=== PATIENT | female | born 1960 | race African-American/Black ===

== ENCOUNTER 2017-10-16 13:57 | Emergency (ER) | payer BC ==
--- NOTE | 2017-10-16 14:19 | PDOC ---
History of Present Illness - General Chief Complaint: Blood Pressure Problem Stated Complaint: HIGH BLOOD PRESSURE Time Seen by Provider: 10/16/17 14:19 - History of Present Illness Initial Comments: 10/16/17 14:19 Ms. Muñoz is a 57 yo female w/ pmh of HTN, reflux, and migraines, who presents for evaluation of high BP noted at [facility] earlier today. Ms. Muñoz reports she is proscribed labetalol and a "water pill" daily and that she hasn' t been taking her water pill for several days. BP upstairs was approximately 190 's systolic; BP upon arrival in ED was 160's systolic. Ms. Muñoz also reports recent blurry vision above her baseline and has had several days of leg swelling. The patient denies chest pain, shortness of breath, headache and dizziness. Denies fever, chills, nausea, vomit, diarrhea and constipation. Denies dysuria, frequency, urgency and hematuria. Allergies: Naproxen Past History - Past Medical History Allergies/Adverse Reactions: Allergies Allergy/AdvReac Type Severity Reaction Status Date / Time naproxen [From Naprosyn] Allergy Mild Hives Verified 10/11/15 22:05 naproxen sodium [From Aleve] Allergy Rash Verified 10/11/15 22:05 Home Medications: Ambulatory Orders Furosemide [Lasix] 0 mg PO ASDIR 10/16/17 Labetalol HCl [Normodyne -] 100 mg PO DAILY 10/16/17 Labetalol HCl [Normodyne -] 200 mg PO BID 10/16/17 Meloxicam 0 mg PO ASDIR 10/16/17 Anemia: No Asthma: No Cancer: No Cardiac Disorders: No CVA: No COPD: No CHF: No Dementia: No Diabetes: No GI Disorders: Yes Disorders: Yes (fibroids) HTN: Yes Hypercholesterolemia: No Liver Disease: No Seizures: No Thyroid Disease: No - Surgical History Abdominal Surgery: Yes (UMBILICAL HERNIA) - Suicide/Smoking/Psychosocial Hx Smoking Status: No Smoking History: Never smoked Have you smoked in the past 12 months: No Number of Cigarettes Smoked Daily: 0 Hx Alcohol Use: Yes (WINE) Drug/Substance Use Hx: No Substance Use Type: None Hx Substance Use Treatment: No Review of Systems - Review of Systems Comments:: 10/16/17 14:20 GENERAL/CONSTITUTIONAL: No fever or chills. No weakness. HEAD, EYES, EARS, NOSE AND THROAT: +Increased blurry vision when not taking BP meds. No ear pain or discharge. No sore throat. CARDIOVASCULAR: No chest pain or shortness of breath RESPIRATORY: No cough, wheezing, or hemoptysis. GASTROINTESTINAL: No nausea, vomiting, diarrhea or constipation. GENITOURINARY: No dysuria, frequency, or change in urination. MUSCULOSKELETAL: +Bilateral leg swelling. No neck or back pain. SKIN: No rash NEUROLOGIC: No headache, vertigo, loss of consciousness, or change in strength/ sensation. ENDOCRINE: No increased thirst. No abnormal weight change HEMATOLOGIC/LYMPHATIC: No anemia, easy bleeding, or history of blood clots. ALLERGIC/IMMUNOLOGIC: No hives or skin allergy. *Physical Exam - Physical Exam Comments: 10/16/17 14:20 GENERAL: Awake, alert, and fully oriented, in no acute distress HEAD: No signs of trauma, normocephalic, atraumatic EYES: PERRLA, EOMI, sclera anicteric, conjunctiva clear ENT: Auricles normal inspection, hearing grossly normal, nares patent, oropharynx clear without exudates. Moist mucosa NECK: Normal ROM, supple, no lymphadenopathy, JVD, or masses LUNGS: No distress, speaks full sentences, clear to auscultation bilaterally HEART: Regular rate and rhythm, normal S1 and S2, no murmurs, rubs or gallops, peripheral pulses normal and equal bilaterally. ABDOMEN: Soft, nontender, normoactive bowel sounds. No guarding, no rebound. No masses EXTREMITIES: +Bilateral 2+ lower extremity edema. Normal range of motion. No clubbing or cyanosis. NEUROLOGICAL: Cranial nerves II through XII grossly intact. Normal speech, normal gait, no focal sensorimotor deficits SKIN: Warm, Dry, normal turgor, no rashes or lesions noted. ED Treatment Course - LABORATORY CBC & Chemistry Diagram: 10/16/17 15:05 10/16/17 15:05 Medical Decision Making - Medical Decision Making 10/16/17 14:41 Ms. Muñoz is a 57 yo female w/ pmh as described who presents for evaluation of elevated bp noted today. Repeat bp in ED 164/74. Patient then instructed to take home medications as proscribed for the day. Patient vision tested at 20/ 40L and 20/50R with glasses. 10/16/17 16:57 Ms. Muñoz's labs grossly wnl as below. US negative for DVT on swollen limbs. Repeat vitals revealed rate of 65 and BP of 161/92. No concern for acute process at this time. Discharging to home with instructions to f/u with PCP for further evaluation. Laboratory Results - last 24 hr 10/16/17 10/16/17 15:05 15:05 WBC 4.2 RBC 4.48 Hgb 12.9 Hct 39.0 MCV 87.1 MCH 28.7 MCHC 33.0 RDW 14.6 Plt Count 155 D MPV 10.0 Neutrophils % 55.2 Lymphocytes % 29.1 Monocytes % 11.5 H Eosinophils % 3.5 D Basophils % 0.7 Nucleated RBC % 0 Sodium 142 Potassium 3.5 Chloride 105 Carbon Dioxide 31 Anion Gap 6 L BUN 14 Creatinine 0.9 Creat Clearance w eGFR > 60 Random Glucose 76 Calcium 8.6 Total Bilirubin 0.3 D AST 24 ALT 35 Alkaline Phosphatase 61 Total Protein 7.3 Albumin 3.9 *DC/Admit/Observation/Transfer Diagnosis at time of Disposition: Elevated blood pressure reading - Discharge Dispostion Disposition: HOME - Referrals Referrals: North Hutton MD [Primary Care Provider] - - Patient Instructions Printed Discharge Instructions: DI for High Blood Pressure Additional Instructions: Please follow-up with primary care provider as discussed. Take home medications as proscribed until advised differently by personal physician. Return to ER if any shortness of breath, fever, chills, increased swelling, or other concerning symptoms. - Post Discharge Activity
--- NOTE | 2017-10-16 14:31 | PDOC ---
Attending Attestation - Resident Resident Name: Nahid Oseguera - ED Attending Attestation I have performed the following: I have examined & evaluated the patient, The case was reviewed & discussed with the resident, I agree w/resident's findings & plan, Exceptions are as noted - HPI HPI: 10/16/17 14:30 57y F hx of htn, reflux wa at [facility] for her hepatitis shot and noted hypertensive. pt has been off her diuretic due to the side effect of urinating frequently. pt also endorses some b/l leg edema for several months. Pt also endorses havng intermittent b/l blurry vision for week. pt denies any headache, neck pain, back pain, chest pain, abd pain, diaphoresis, baez, cp on exertion, cough, hemotpysis, fever/chills. GENERAL: The patient is awake, alert, and fully oriented, Nontoxic - in no acute distress. HEAD: Normocephalic, atraumatic. NECK: Normal range of motion, supple LUNGS: Breath sounds equal, clear to auscultation bilaterally. No wheezes, no rhonchi, no rales. HEART: Regular rate and rhythm, normal S1 and S2 without murmur, rub or gallop. ABDOMEN: Soft, nontender, EXTREMITIES: +pitting edema b/l, L>R, mild tenderness to palpation of L calf/LE NEUROLOGICAL: No facial assymetry, Normal speech, movinga ll 4 extremities spontaneously and symmetrically PSYCH: Normal mood, normal affect. SKIN: Warm, Dry, normal turgor, ddx: htn will obtain blood work to r/o renal failure ekg to scree nfor acs no signs of volume overload +calf pain, leg swelling - will r/o dvt with US will recmmend ophto fu for her visio, ?htn retinopathy - Physicial Exam PE: 10/20/17 12:52 see abve - Medical Decision Making 10/16/17 17:30 pt feeling improved lab unremarkble vision back to normal will dc pt with pmd and ophtho fu return precautions were discussed Heart Score/ECG Review - ECG Impressions Comment:: 10/16/17 15:02 Twelve-lead EKG was performed and reviewed by me. There is normal sinus rhythm with a rate of 58 Flipped T waves in inferior leads
[2017-10-16 14:33] VITALS: TEMP 98.4; BMI 96.7
[2017-10-16 15:27] LABS: BASO % 0.7 % (0-2.0); EOS % 3.5 % (0-4.5); HEMOGLOBIN 12.9 GM/dL (10.7-15.3); LYMPH % 29.1 % (8-40); MCH 28.7 pg (25.7-33.7); MEAN CELL VOLUME 87.1 fl (80-96); MONO % 11.5 % (3.8-10.2); NEUT % 55.2 % (42.8-82.8); PLATELET COUNT 155 K/MM3 (134-434); RBC 4.48 M/mm3 (3.60-5.2); RDW 14.6 % (11.6-15.6); WHITE BLOOD COUNT 4.2 K/mm3 (4.0-10.0)
[2017-10-16 16:02] LABS: ALBUMIN 3.9 g/dl (3.4-5.0); ALK PHOS 61 U/L (45-117); ANION GAP 6 (8-16); BILIRUBIN,TOTAL 0.3 mg/dL (0.2-1.0); BLOOD UREA NITROGEN 14 mg/dL (7-18); CALCIUM 8.6 mg/dL (8.5-10.1); CHLORIDE 105 mmol/L (98-107); CO2 31 mmol/L (21-32); CREATININE 0.9 mg/dL (0.55-1.02); GLUCOSE,RANDOM 76 mg/dL (74-106); POTASSIUM 3.5 mmol/L (3.5-5.1); SGOT/AST 24 U/L (15-37); SGPT/ALT 35 U/L (12-78); SODIUM 142 mmol/L (136-145); TOT PROT 7.3 g/dl (6.4-8.2)
[2017-10-16 17:18] VITALS: BP 161/92; PULSE 65
--- NOTE | 2017-10-18 22:26 | EKG ---
Test Reason : Blood Pressure : / mmHG Vent. Rate : 058 BPM Atrial Rate : 058 BPM P-R Int : 158 ms QRS Dur : 086 ms QT Int : 424 ms P-R-T Axes : 043 -12 -21 degrees QTc Int : 416 ms SINUS BRADYCARDIA MINIMAL VOLTAGE CRITERIA FOR LVH, MAY BE NORMAL VARIANT NONSPECIFIC T WAVE ABNORMALITY ABNORMAL ECG WHEN COMPARED WITH ECG OF 11-OCT-2015 22:03, MINIMAL CRITERIA FOR SEPTAL INFARCT ARE NO LONGER PRESENT Confirmed by REKHA OBRIEN MD ([id number]) on 10/18/2017 10:26:27 PM Referred By: Confirmed By:REKHA OBRIEN MD
== END 2017-10-16 17:10 | disposition home or self-care (01) ==
LOC: JER 13:57
DX: I10 Essential (primary) hypertension (principal); K21.9 Gastro-esophageal reflux disease without esophagitis; G43.909 Migraine, unspecified, not intractable, without status migrainosus; Z91.14 Patient's other noncompliance with medication regimen
CPT/HCPCS: 36415; 80053; 85025; 93005; 93010; 93971-TC; 99282-25

== ENCOUNTER 2021-02-24 18:57 | Emergency (ER) | payer BC, OTHER ==
[2021-02-24 19:08] VITALS: BMI 44.3
[2021-02-24 19:10] VITALS: TEMP 98.7
[2021-02-24] MEDS ORDERED: hydrALAZINE HCL 50 MG TABLET (FP) PO ONE (20:38)
[2021-02-24] MEDS ORDERED: hydrALAZINE HCL 25 MG TABLET (FP) ONE (20:50)
[2021-02-24 21:25] LABS: BASO % 1.4 % (0-2.0); EOS % 0.6 % (0-4.5); HEMATOCRIT 37.6 % (32.4-45.2); HEMOGLOBIN 12.5 GM/dL (10.7-15.3); LYMPH % 28.9 % (8-40); MCHC 33.2 g/dl (32.0-36.0); MEAN CELL VOLUME 84.4 fl (80-96); MEAN PLT VOLUME 9.7 fl (7.5-11.1); MONO % 11.3 % (3.8-10.2); NEUT % 57.8 % (42.8-82.8); PLATELET COUNT 158 10^3/uL (134-434); RBC 4.45 M/mm3 (3.60-5.2); RDW 14.5 % (11.6-15.6); WHITE BLOOD COUNT 5.2 K/mm3 (4.0-10.0)
[2021-02-24 21:42] LABS: CHLORIDE 102 mmol/L (98-107); SODIUM 139 mmol/L (136-145)
[2021-02-24 21:44] LABS: CALCIUM 8.8 mg/dL (8.5-10.1)
[2021-02-24 21:45] LABS: ALBUMIN 3.6 g/dl (3.4-5.0); ANION GAP 7 MMOL/L (8-16); CO2 30 mmol/L (21-32)
[2021-02-24 21:47] LABS: GLUCOSE,RANDOM 94 mg/dL (74-106)
[2021-02-24 21:48] LABS: CREATININE 0.9 mg/dL (0.55-1.3); SGOT/AST 18 U/L (15-37); SGPT/ALT 26 U/L (13-61)
[2021-02-24 21:49] LABS: BILIRUBIN,TOTAL 0.4 mg/dL (0.2-1); TOT PROT 7.3 g/dl (6.4-8.2)
[2021-02-24 21:51] LABS: ALK PHOS 53 U/L (45-117)
[2021-02-24 22:44] VITALS: BP 135/76; PULSE 87
== END 2021-02-24 22:44 | disposition home or self-care (01) ==
LOC: JER 18:57
DX: R51.9 Headache, unspecified (principal); I10 Essential (primary) hypertension
CPT/HCPCS: 36415; 80053; 82550; 82553; 84484; 85025; 93005; 93010; 99284-25